=== PATIENT | male | born 1995 | race Caucasian/White ===

== ENCOUNTER 2020-03-26 17:08 | Emergency (ER) | payer OTHER, SELFPAY ==
--- NOTE | ~2020-03-26 | CT_ITS ---
EXAMINATION: CT brain wo con DATE: 03/26/2020 17:59 INDICATION: Seizure. Patient fell and struck posterior aspect of head. Neck pain. TECHNIQUE: Computed tomography (CT) of the head was performed without intravenous contrast. The mA wa s adjusted according to patient size. Iterative reconstruction technique was employed. Exam dose: 68 1.00 mGy-cm total exam DLP. COMPARISON: None FINDINGS: No intracranial mass lesion or hemorrhage or cerebrovascular accident. No midline shift or mass effect. Normal ventricular size. Normal montague-white matter differentiation. No subdural or epidural hematoma. There is some focal soft tissue opacification in the posterior right ethmoids and anterolateral right sphenoid sinus. The paranasal sinuses and mastoid air cells are otherwise normally developed and aer ated. No fracture or bone destruction of the cranial vault. IMPRESSION: No intracranial abnormality or skull fracture Reviewed, dictated and finalized at [facility]. Reviewed, dictated and finalized at [facility].
--- NOTE | ~2020-03-26 | XR_ITS ---
XR chest 2V DATE: 03/26/2020 18:48 INDICATION: Syncope TECHNIQUE: PA and lateral views COMPARISON: None FINDINGS: Normal heart size. No hilar or mediastinal enlargement. The lungs are clear of infiltrate or consolidation. No pleural effusion or pulmonary vascular congest ion or pneumothorax. Included skeletal structures are unremarkable. IMPRESSION: No active cardiopulmonary disease Reviewed, dictated and finalized at [facility].
--- NOTE | ~2020-03-26 | CT_ITS ---
EXAMINATION: CT cervical spine wo con DATE: 03/26/2020 17:59 INDICATION: Seizure. Fall. Posterior head injury. Neck pain. TECHNIQUE: Computed tomography (CT) of the cervical spine was performed without intravenous contrast. Automated exposure control and iterative reconstruction technique were employed. Exam dose: 262.94 mGy-cm total exam DLP. COMPARISON: None FINDINGS: There is straightening of the cervical spine which may be due to positioning and/or muscle spasm. C1 and C2 are normally aligned and the odontoid process is intact. No fracture or dislocation or lock ed facet or prevertebral soft tissue swelling. Cervical interspaces are well preserved. IMPRESSION: Straightening of cervical spine; no fracture or dislocation Reviewed, dictated and finalized at [facility]. Reviewed, dictated and finalized at [facility].
[2020-03-26 17:08] VITALS: BP 112/46; PULSE 58; RESP 14; TEMP 36.7; O2SAT 98
[2020-03-26 17:15] VITALS: PULSE 58
--- NOTE | 2020-03-26 17:31 | ECG_ITS ---
Measurements Intervals [place] Rate: 52 P: 72 ND: 152 QRS: 56 QRSD: 100 T: 59 QT: 391 QTc: 367 Interpretive Statements SINUS BRADYCARDIA WITH SINUS ARRHYTHMIA ST ELEVATION IN ANT/INF LEADS, PROBABLY EARLY REPOLARIZATION BORDERLINE ECG Electronically Signed On 03-28-2020 7:15:21 CDT by Yobany Pacheco D.O.
[2020-03-26] MEDS: levETIRAcetam 1000MG/NACL100ML 1,000 MG/100 ML BAG 400 MG IVPB (18:19)
[2020-03-26] MEDS: SODIUM CHLORIDE 0.9% IV 100 ML 400 ML (18:20)
[2020-03-26 18:28] LABS: Hematocrit 47.7 % (40.0-54.0); Hemoglobin 16.3 g/dL (14.0-18.0); Mean Corpuscular HGB Conc 34.2 g/dL (32.0-36.0); Mean Corpuscular Hemoglobin 28.7 pg (27.0-31.0); Mean Platelet Volume 10.7 fl (8.7-11.0); Platelet Count Result 223 K/mm3 (150-420); Red Blood Count 5.68 M/mm3 (4.70-6.10); Red Cell Distribution Width 12.4 % (11.6-14.4)
--- NOTE | 2020-03-26 18:40 | ED.SEIZURE ---
HPI - Seizure General Chief Complaint: Seizure Stated Complaint: 24 Yo male w/ known h/o Seizure disorder noncomplaint with Keppra here by EMS after he had a witnessed seizure that lasted approx 90 sec. Patient is awake, alert and admits he has not been taking his keppra. Last seizure was 4 days ago. Patient admits to using Marijuana. He is back to baseline per his girlfriend. Related Data Home Medications Medication Instructions Recorded Confirmed levetiracetam 250 mg PO BID 03/26/20 03/26/20 Allergies Allergy/AdvReac Type Severity Reaction Status Date / Time No Known Allergies Allergy Verified 03/26/20 17:20 Review of Systems Review of Systems: All systems reviewed & are unremarkable except as noted in HPI and below Constitutional: Constitutional: Reports as per HPI and Reports no additional constitutional complaints Eyes: Eyes: Reports as per HPI and Reports no additional eye complaints ENT: Reports system reviewed and no additional complaints, except as documented and Reports as per HPI Cardiovascular: Cardiovascular: Reports as per HPI and Reports no additional cardiovascular complaints Respiratory: Respiratory: Reports as per HPI and Reports no additional respiratory complaints Gastrointestinal: Gastrointestinal: Reports as per HPI and Reports no additional gastrointestinal complaints Genitourinary: Genitourinary: Reports no additional male genitourinary complaints and Reports as per HPI Musculoskeletal: Musculoskeletal: Reports no additional musculoskeletal complaints and Reports as per HPI Integumentary/Breasts: Skin/Breast: Reports system reviewed and no additional complaints, except as docu and Reports as per HPI Neurologic: Reports system reviewed and no additional complaints, except as documented and Reports as per HPI Psychiatric: Psychiatric: Reports no additional psychiatric complaints and Reports as per HPI Endocrine: Endocrine: Reports no additional endocrine complaints and Reports as per HPI Hematologic/Lymphatic: Hematologic/Lymphatic: Reports no additional hematologic/lymphatic complaints and Reports as per HPI Allergic/Immunologic: Allergic/Immunologic: Reports no additional allergic/immunologic complaints and Reports as per HPI [facility] Past Medical History Medical History (Updated 03/26/20 @ 21:40 by Gerard Stevenson MD) Seasonal allergies Seizure disorder Social History Social History Smoking packs per day: 1 Smoking cigarettes per day: 20.0 Years smoked: 10 Smoking pack-years: 10.00 Smoking status: Current every day smoker Tobacco type: cigarettes Second hand tobacco smoke exposure: Yes Alcohol intake: unknown Substance use: current Substance use type: marijuana Living arrangements: with family Exam Const: General: healthy appearing, no acute distress and alert Orientation/consciousness: patient oriented x3 HENMT: Head: normal to inspection Eyes: Pupils: Equal, round and reactive pupils present Neck: Neck: normal visual inspection Chest: Chest palpation & inspection: normal inspection of the chest Resp: Effort & Inspection: normal respiratory effort Auscultation: clear to auscultation bilaterally Cardio: Rate: regular rate Rhythm: regular rhythm GI: Auscultation: normal bowel sounds Skin: General skin exam: normal color Neuro: General: patient oriented x3, moves all extremities, no focal motor deficits and CN's II-XI intact bilaterally Speech: normal speech Extrem: General: normal to inspection Psych: Mental Status: mental status grossly normal Affect: normal affect Attitude: cooperative Thought content: Yes Normal thought content present Course Course Emergency Course: Patient admits to being back to baseline. His girlfriend also admits he looks better. Patients WBC improved after IVF and Lactic acid levels normal. Vital Signs Vital signs: Vital Signs Tempera
[2020-03-26 18:43] LABS: Glucose Point of Care 73 (65-105)
[2020-03-26 18:50] LABS: INR 1.1; Partial Thromboplastin Time 26.1 SEC (22.3-31.6); Prothrombin Time 11.1 Seconds (9.64-11.0)
[2020-03-26 18:58] LABS: White Blood Count 20.7 K/mm3 (4.8-10.8)
[2020-03-26 18:59] LABS: Band Neutrophils Percent 2 % (0-6); Basophils Percent Manual 0 % (0-1); Eosinophils Percent Manual 0 % (1-6); Metamyelocytes Percent 0 %; Monocytes Absolute Manual 1.65 K/mm3 (0.1-0.90); Monocytes Percent Manual 8 % (3-9); Myelocytes Percent 0 %; Neutrophils Absolute Manual 17.38 K/mm3 (1.3-6.7); Neutrophils Percent Manual 82 % (46-73); Promyelocytes Percent 0 %; Total Cells Counted 100
[2020-03-26 19:00] LABS: Atypical Lymphocytes Present; Lymphocytes Absolute Manual 1.65 K/mm3 (1.1-4.5); Lymphocytes Percent Manual 8 % (18-44); Platelet Estimate Adequate (Adequate)
[2020-03-26 19:02] LABS: Blood Urea Nitrogen 17 mg/dL (7-18); Carbon Dioxide 20 mmol/L (21-32); Chloride 104 mmol/L (98-108); Estimated CRCL calculation 125 ml/min; Estimated Glomerular Filt Rate > 60; Sodium 140 mmol/L (136-145)
[2020-03-26 19:03] LABS: Alanine Aminotransferase 18 U/L (16-63); Albumin Level 4.2 g/dL (3.4-5.0); Alkaline Phosphatase 60 U/L (46-116); Ammonia 32 umol/L (11-32); Aspartate Amino Transferase 20 U/L (15-37); Bilirubin,Total 0.7 mg/dL (0.00-1.00); Calcium 8.6 mg/dL (8.5-10.1); Creatine Kinase 250 U/L (39-308); Glucose 78 mg/dL (70-99); Osmolality Calculated 290 mOsm/kg (285-295); Thyroid Stimulating Hormone 0.75 uIU/mL (0.36-3.74); Total Protein 7.6 g/dL (6.4-8.2)
[2020-03-26 19:04] LABS: Acetaminophen 0 ug/mL (10-30); Ethanol < 3 mg/dL (0-6); Salicylate 4.8 mg/dL (2.8-20.0)
[2020-03-26 19:12] LABS: Add Urine Microscopic? YES; Appearance Urine Clear (Clear); Bilirubin Urine Negative (Negative); Blood Urine 1+ (Negative); Color Urine Yellow (Yellow); Glucose Urine UA Negative (Negative); Ketones Urine 1+ (Negative); Leukocyte Esterase Ur Negative LEU/UL (Negative); Nitrate Urine Negative (Negative); Protein Urine Trace (Negative); Specific Grav Ur >= 1.030 (1.010-1.020); Urobilinogen Urine 0.2 mg/dL (0.2-1.0)
[2020-03-26] MEDS: ACETAMINOPHEN 325 MG TABLET 650 MG PO (19:15)
[2020-03-26 19:21] LABS: Amphetamine Screen Urine Negative (Negative); Barbiturate Screen Urine Negative (Negative); Benzodiazepines Screen Urine Negative (Negative); Cannabinoid Screen Urine Positive (Negative); Cocaine Screen Urine Negative (Negative); Methadone Screen Urine Negative (Negative); Opiate Screen Urine Negative (Negative); Phencyclidine Screen Urine Negative (Negative)
[2020-03-26 19:23] LABS: RBC Urine 0-2 /hpf (0-2); Squamous Epithelial Cell Urine Rare /hpf (Few); WBC Urine None seen /hpf (0-3)
[2020-03-26 19:24] LABS: Bacteria Urine Trace /hpf; Mucus Urine Few /lpf
[2020-03-26 19:35] VITALS: BP 124/64; PULSE 61; RESP 20; O2SAT 98
[2020-03-26] MEDS: SODIUM CHLORIDE 0.9% IV 1,000 ML 2000 ML IV CONT (19:45)
--- NOTE | 2020-03-26 20:00 | PC.NURSE ---
ORDER FOR NS CLARIFIED. PER DR RICHARDSON PT TO RECIEVE 2000 ML NS PER [facility].
[2020-03-26 20:51] LABS: Basophils Absolute Auto 0.02 K/mm3 (0.00-0.10); Basophils Percent Auto 0.1 % (0.0-1.0); Eosinophils Absolute Auto 0.03 K/mm3 (0.02-0.50); Eosinophils Percent Auto 0.2 % (1.0-6.0); Hematocrit 44.9 % (40.0-54.0); Immature Granulocyte Absolute 0.12 K/mm3 (0.00-0.00); Immature Granulocyte Percent A 0.7 % (0.0-0.0); Lymphocytes Absolute Auto 1.02 K/mm3 (1.10-4.50); Mean Corpuscular HGB Conc 33.4 g/dL (32.0-36.0); Mean Corpuscular Hemoglobin 28.2 pg (27.0-31.0); Mean Corpuscular Volume 84.6 fL (78.0-102.0); Monocytes Percent Auto 5.9 % (2.0-11.0); Neutrophils Absolute Auto 14.9 K/mm3 (1.7-7.2); Neutrophils Percent Auto 87.1 % (50.0-70.0); Platelet Count Result 186 K/mm3 (150-420); Red Blood Count 5.31 M/mm3 (4.70-6.10); Red Cell Distribution Width 12.4 % (11.6-14.4); White Blood Count 17.1 K/mm3 (4.8-10.8)
[2020-03-26 21:07] LABS: Lactic Acid 0.8 mmol/L (0.4-2.0)
[2020-03-26 21:19] VITALS: BP 120/65; PULSE 73; RESP 20; O2SAT 97
--- NOTE | 2020-03-26 21:41 | ED.SEIZURE ---
HPI - Seizure General Chief Complaint: Seizure Stated Complaint: 24 Yo male w/ known h/o Seizure disorder noncomplaint with Keppra here by EMS after he had a witnessed seizure that lasted approx 90 sec. Patient is awake, alert and admits he has not been taking his keppra. Last seizure was 4 days ago. Patient admits to using Marijuana. He is back to baseline per his girlfriend. Related Data Home Medications Medication Instructions Recorded Confirmed levetiracetam 250 mg PO BID 03/26/20 03/26/20 Allergies Allergy/AdvReac Type Severity Reaction Status Date / Time No Known Allergies Allergy Verified 03/26/20 17:20 [facility] Past Medical History Medical History (Updated 03/26/20 @ 21:40 by Gerard Stevenson MD) Seasonal allergies Seizure disorder Social History Social History Smoking packs per day: 1 Smoking cigarettes per day: 20.0 Years smoked: 10 Smoking pack-years: 10.00 Smoking status: Current every day smoker Tobacco type: cigarettes Second hand tobacco smoke exposure: Yes Alcohol intake: unknown Substance use: current Substance use type: marijuana Living arrangements: with family Course Vital Signs Vital signs: Vital Signs Temperature 98.1 F 03/26/20 17:08 Pulse Rate 58 L 03/26/20 17:08 Respiratory Rate 14 03/26/20 17:08 Blood Pressure 112/46 L 03/26/20 17:08 Pulse Oximetry 98 03/26/20 17:08 Temperature 98.1 F 03/26/20 17:08 Pulse Rate 73 03/26/20 21:19 Respiratory Rate 20 03/26/20 21:19 Blood Pressure 120/65 03/26/20 21:19 Pulse Oximetry 97 03/26/20 21:19 MDM - Seizure Lab Data Result diagrams: 03/26/20 20:44 03/26/20 18:18 Labs: Lab Results 03/26/20 03/26/20 03/26/20 Range/Units 18:18 18:18 18:18 WBC 20.7 H* (4.8-10.8) K/mm3 RBC 5.68 (4.70-6.10) M/mm3 Hgb 16.3 (14.0-18.0) g/dL Hct 47.7 (40.0-54.0) % MCV 84.0 (78.0-102.0) fL MCH 28.7 (27.0-31.0) pg MCHC 34.2 (32.0-36.0) g/dL RDW 12.4 (11.6-14.4) % Plt Count 223 (150-420) K/mm3 MPV 10.7 (8.7-11.0) fl Immature Gran % (Auto) Not Reportable Neut % (Auto) Not Reportable Lymph % (Auto) Not Reportable [place] % (Auto) Not Reportable Eos % (Auto) Not Reportable Baso % (Auto) Not Reportable Lymph # (Auto) Not Reportable [place] # (Auto) Not Reportable Eos # (Auto) Not Reportable Baso # (Auto) Not Reportable Abs Immat Gran (auto) Not Reportable Absolute Neuts (auto) Not Reportable Absolute Nucleated RBC Not Reportable Total Counted 100 Neutrophils % (Manual) 82 H (46-73) % Band Neutrophils % 2 (0-6) % Lymphocytes % (Manual) 8 L (18-44) % Monocytes % (Manual) 8 (3-9) % Eosinophils % (Manual) 0 L (1-6) % Basophils % (Manual) 0 (0-1) % Metamyelocytes % 0 % Myelocytes % 0 % Promyelocytes % (Man) 0 % Nucleated RBC % Not Reportable Abs Neuts (Manual) 17.38 H (1.3-6.7) K/mm3 Abs Lymphs (Manual) 1.65 (1.1-4.5) K/mm3 Abs Monocytes (Manual) 1.65 H (0.1-0.90) K/mm3 Absolute Eos (Manual) 0.00 L (0.02-0.5) K/mm3 Abs Basophils (Manual) 0.00 (0-0.1) K/mm3 Atypical Lymphocytes Present Platelet Estimate Adequate (Adequate) PT 11.1 H (9.64-11.0) Seconds INR 1.1 APTT 26.1 (22.3-31.6) SEC Sodium 140 (136-145) mmol/L Potassium 4.0 (3.5-5.1) mmol/L Chloride 104 (98-108) mmol/L Carbon Dioxide 20 L (21-32) mmol/L Anion Gap 20.0 H (7-16) mmol/L BUN 17 (7-18) mg/dL Creatinine 0.70 (0.70-1.30) mg/dL Estim Creat Clear Calc 125 ml/min Estimated GFR > 60 (59 - ) Glucose 78 (70-99) mg/dL POC Capillary Glucose (65-105) mg/dl Calculated Osmolality 290 (285-295) mOsm/kg Lactic Acid (0.4-2.0) mmol/L Calcium 8.6 (8.5-10.1) mg/dL Total Bilirubin 0.7
[2020-03-26 21:50] VITALS: BP 126/68; PULSE 69; RESP 18; O2SAT 97
[2020-03-30 12:29] LABS: Levetiracetam Keppra <1.0 mcg/mL (12.0-46.0)
== END 2020-03-26 21:51 | disposition home or self-care (01) ==
PROVIDERS: Emergency Provider Family Medicine; PCP Pediatrics
DX: G40.909 Epilepsy, unspecified, not intractable, without status epilepticus (principal); Z91.14 Patient's other noncompliance with medication regimen
CPT/HCPCS: 36415; 70450; 71046; 72125; 80053; 80177; 80307; 81001; 82140; 82550; 82948; 83605; 84443; 85025; 85610; 85730; 93005; 96361; 96365; 99283; 99284; A9270; J1953; J7030